=== PATIENT | male | born 1980 ===

== ENCOUNTER 2021-06-13 08:05 | Day surgery (SDC) | payer OTHER ==
[~2021-06-13 08:05] MED LIST: NABUMETONE500 MG PO
== END 2021-06-13 17:35 | disposition home or self-care (01) ==
LOC: CIR.AMB 08:05
PROVIDERS: ATTEND Orthopaedic Surgery Hand Surgery
DX: S52.531A Colles' fracture of right radius, initial encounter for closed fracture (principal); Z20.822 Contact with and (suspected) exposure to COVID-19
CPT/HCPCS: 25609; 25118; 25280; C1776